=== PATIENT | female | born 1975 | race Caucasian/White ===

== ENCOUNTER → 2016-07-15 | Outpatient (CLI) | payer OTHER ==
[2016-07-15 14:17] LABS: FOLATE > 24.0 NG/ML; VITAMIN B12 LEVEL 1825 PG/ML
[2016-07-15 14:19] LABS: ALBUMIN 4.1 GM/DL (3.2-5.2); ALBUMIN/GLOBULIN RATIO 1.14 (1.00-1.93); ALKALINE PHOSPHATASE 139 U/L (45-117); ALT/SGPT 31 U/L (12-78); ANION GAP 9 MEQ/L (8-16); AST/SGOT 24 U/L (15-37); BILIRUBIN,TOTAL 0.5 MG/DL (0.2-1.0); BLOOD UREA NITROGEN 9 MG/DL (7-18); CALCIUM LEVEL 9.1 MG/DL (8.5-10.1); CARBON DIOXIDE LEVEL 28 MEQ/L (21-32); CHLORIDE LEVEL 103 MEQ/L (98-107); FREE T4 0.84 NG/DL (0.76-1.46); GLOMERULAR FILTRATION RATE > 60.0 (>58); GLUCOSE, FASTING 86 MG/DL (70-105); POTASSIUM SERUM 4.4 MEQ/L (3.5-5.1); SODIUM LEVEL 140 MEQ/L (136-145); TOTAL PROTEIN 7.7 GM/DL (6.4-8.2)
[2016-07-15 17:55] LABS: BASO # 0.1 K/mm3 (0.0-0.2); BASO % 1.9 % (0.0-1.0); EOS # 0.2 K/mm3 (0.0-0.50); EOS % 2.9 % (0.0-3.0); LARGE UNSTAINED CELL # 0.1 K/mm3 (0.0-0.4); LARGE UNSTAINED CELL % 2.3 % (0.0-4.0); LYMPH # 1.5 K/mm3 (1.5-4.5); MEAN CORPUSCULAR HEMOGLOBIN 30.3 pg (27.0-33.0); MEAN CORPUSCULAR HGB CONC 32.8 g/dl (32.0-36.5); MEAN CORPUSCULAR VOLUME 92.3 fl (80.0-96.0); MONO # 0.3 K/mm3 (0.0-0.8); MONO % 4.9 % (0.0-5.0); NEUTROPHILS # 3.7 K/mm3 (1.8-7.7); NEUTROPHILS % 64.1 % (36.0-66.0); PLATELET COUNT, AUTOMATED 266 k/mm3 (150-450); RED CELL DISTRIBUTION WIDTH 13.5 % (11.5-14.5); WHITE BLOOD COUNT 5.8 K/mm3 (4.0-10.0)
== END | disposition home or self-care (01) ==
LOC: M SMT 10:54
PROVIDERS: ATTEND Physician Assistant
DX: R47.02 Dysphasia (principal)

== ENCOUNTER → 2016-07-19 | Outpatient (CLI) | payer OTHER ==
--- NOTE | 2016-07-19 14:14 | REP ---
Head CT without contrast: History: Dysphasia. Comparison study: No comparison study. CT findings: Bone window settings demonstrate an intact bony calvarium. There is no evidence of skull fracture or incidental bony calvarial lesion. The visualized paranasal sinuses appear clear. No intraorbital abnormality is seen. On soft tissue window setting images; the lateral, third, and fourth ventricles are normal in size and position. Villagomez-white differentiation pattern is normal above and below the tentorium. There are is no evidence of intracranial hemorrhage. No mass, edema, infarction, or midline shift is seen. No extra-axial fluid collection is appreciated. Impression: Negative noncontrast head CT. Signed by Dk Hsieh MD 07/19/2016 02:05 P
== END | disposition home or self-care (01) ==
LOC: M RAD 13:48
PROVIDERS: ATTEND Physician Assistant
DX: R47.02 Dysphasia (principal)

== ENCOUNTER → 2016-07-30 | Outpatient (REF) | payer OTHER | END | disposition home or self-care (01) | LOC: M LAB REF 16:47 | PROVIDERS: ATTEND Physician Assistant | DX: L30.9 Dermatitis, unspecified (principal); R23.4 Changes in skin texture; L08.9 Local infection of the skin and subcutaneous tissue, unspecified ==

== ENCOUNTER → 2016-08-16 | Outpatient (CLI) | payer OTHER ==
--- NOTE | 2016-08-21 12:54 | SLEEPHOME ---
DATE OF STUDY: 08/16/2016 ORDERING PROVIDER: Cortes Wiseman PA-C Diagnostic home sleep testing was performed due to concern for the obstructive sleep apnea syndrome. For testing, a NOX-T3 respiratory monitoring device was used. Continuous record was made of pulse, oxygen saturation, airflow, chest and abdominal strain, and body position. 9 hours and 59 minutes of data were reviewed. Of these, 8 hours and 53 minutes were marked as time in bed. During the interval marked time in bed, there were 122 respiratory events identified of 10 seconds in duration or greater for a respiratory event index of 13.7. The events were primarily obstructive, but a significant number of mixed and central apneas were also seen. Baseline heart rate 88 beats per minute. Pulse rate ranged 74-117. Baseline saturation 94%. Lowest oxygen saturation 87%. Testing was performed in both the supine and nonsupine positions. IMPRESSION: Abnormal home sleep testing with repetitive respiratory events and oxygen desaturations to 87% with a respiratory event index of 13.7 per hour is consistent with the obstructive sleep apnea syndrome. RECOMMENDATION: Given the significant incidents of central events and oxygen desaturations, referral for in-laboratory pressure titration is recommended.
== END ==
LOC: M SLEEP HO 08-06 09:59
PROVIDERS: ATTEND Physician Assistant
DX: G47.9 Sleep disorder, unspecified (principal)

== ENCOUNTER → 2016-09-21 | Outpatient (CLI) | payer OTHER ==
--- NOTE | 2016-09-26 06:43 | SLEEPCENT ---
DATE OF PROCEDURE: 09/21/2016 ORDERED BY: RO Christianson Nocturnal polysomnography was performed for the titration of pressure therapy in this patient with obstructive sleep apnea syndrome based on clinical finding, confirmed by home testing revealing a respiratory event index of 13.7. For testing, the patient was fit with a ResMed AirFit F20 full face mask of small size. 4 cm of water pressure were applied to the circuit and the lights were extinguished. 7 hours and 9 minutes of data were reviewed. There were 315 minutes of sleep identified. Sleep latency was prolonged at 60 minutes. Rapid eye movement (REM) latency was prolonged at 297 minutes. Sleep architecture showed poor progression and some fragmentation. There was a period of wake resulting in reduced sleep efficiency of 74%. EKG showed a sinus rhythm with an average heart rate of 88 beats per minute. EEG showed coarsening in background, some alpha intrusion into non-REM stages. Otherwise, normal waveforms for awake and sleep. Respiratory events were best palliated with CPAP at a pressure of +8. There was significant limb activity appreciated despite the suppression of respiratory arousals. Limb movement arousal index was 15.4. IMPRESSION: 1. Obstructive sleep apnea syndrome (G47.33). 2. Periodic limb movement disorder (G47.61). Limb movement arousal index 15.4. RECOMMENDATION: Nightly use of pressure therapy at 8 cm of water should be sufficient to address the patient's respiratory disruption. Interventions to reduce the frequency arousal from limb activity should further improve the quality of the patient's sleep.
== END ==
LOC: M SLEEP 19:48
PROVIDERS: ATTEND Nurse Practitioner Adult Health
DX: G47.33 Obstructive sleep apnea (adult) (pediatric) (principal); G47.61 Periodic limb movement disorder